=== PATIENT | female | born 1960 | race Caucasian/White ===

== ENCOUNTER 2025-11-01 09:03 | Emergency (ER) | payer MEDICARE, MEDICAID ==
[~2025-11-01] VITALS: Ht 162.6 cm; Wt 59.1 kg
[2025-11-01 09:26] VITALS: TEMP 98
[2025-11-01 09:29] LABS: PLATELET COUNT (AUTO) 270 K/uL (150-450); RED BLOOD CELL COUNT(AUTO) 4.64 MIL/uL (4.00-5.20); RED CELL DISTRIBUTION WIDTH 13.0 % (11.5-14.5); WHITE BLOOD COUNT (AUTO) 8.7 K/uL (4.5-11.0)
[2025-11-01] MEDS: IPRATROPIUM BROMIDE 0.5 MG/2.5 ML NEB SOLUTION NEB ONE (09:31)
[2025-11-01] MEDS: ALBUTEROL SULFATE 2.5 MG/0.5 ML NEB SOLUTION NEB ONE (09:31)
[2025-11-01 09:32] LABS: COVID AG,FIA SOURCE NASAL SWAB
[2025-11-01 09:36] VITALS: PULSE 89; RESP 16; O2SAT 100
[2025-11-01 09:36] LABS: PH,URINE DRUG SCREEN 7.5 (5.0-8.0)
[2025-11-01 09:37] VITALS: PULSE 89; RESP 16; O2SAT 100
[2025-11-01 09:37] LABS: CALCIUM, TOTAL 9.0 mg/dL (8.8-10.5); CREATININE 0.73 mg/dL (0.60-1.30); GLOMERULAR FILTR. RATE CALC > 60 mL/min (>60); GLUCOSE,RANDOM 97 mg/dL (70-110); SODIUM SERUM 140 mmol/L (136-145); UREA NITROGEN, BLOOD 11 mg/dL (7-18)
[2025-11-01 09:43] LABS: ALCOHOL, URINE DRUG SCREEN NEGATIVE (NEGATIVE); AMPHET/METH SCREEN,URINE NEGATIVE (NEGATIVE); BARBITURATE SCREEN, URINE NEGATIVE (NEGATIVE); CANNABINOID SCREEN,URINE NEGATIVE (NEGATIVE); COCAINE SCREEN,URINE NEGATIVE (NEGATIVE); METHADONE SCREEN, URINE NEGATIVE (NEGATIVE)
[2025-11-01 09:46] LABS: TROPONIN I-HIGH SENSITIVITY 5 ng/L (<51)
[2025-11-01 09:55] LABS: ALCOHOL, BLOOD (SERUM) < 3 mg/dL (0-10)
[2025-11-01 10:00] LABS: SARS-COV2 (COVID) ANTIGEN,FIA Negative (Negative)
[2025-11-01 10:01] LABS: INFLUENZA TYPE A NEGATIVE FOR TYPE A (NEGATIVE); INFLUENZA TYPE B NEGATIVE FOR TYPE B (NEGATIVE)
[2025-11-01 11:00] VITALS: BP 132/75; PULSE 78; RESP 17; O2SAT 99
== END 2025-11-01 11:20 ==
LOC: EMS 09:03
DX: R05.9 Cough, unspecified (principal); F17.210 Nicotine dependence, cigarettes, uncomplicated; F32.A Depression, unspecified; Z88.5 Allergy status to narcotic agent; Z90.89 Acquired absence of other organs; Z00.8 Encounter for other general examination; Z20.822 Contact with and (suspected) exposure to COVID-19
CPT/HCPCS: 99285; 71045; 87426; 80048; 83880; 84484; 85025; 87804; 36415; 94640; 93005; 80307; G0480; J7512